=== PATIENT | male | born 2000 ===

== ENCOUNTER 2023-01-13 05:08 | Emergency (ER) | payer MEDICAID, OTHER ==
[~2023-01-13] VITALS: Ht 165 cm; Wt 217.0 kg
[2023-01-13 05:16] VITALS: BP 127/92
[2023-01-13] MEDS ORDERED: ONDANSETRON 4 MG/2 ML (SDV) Z0FRAN IVP ONE (05:30)
[2023-01-13] MEDS ORDERED: LACTATED RINGERS 1,000 ML IV ONE (05:30)
[2023-01-13 05:45] LABS: BASOPHILS % (AUTO) 0 % (0-10); EOSINOPHILS # (AUTO) 0.1 10^3/uL (0.0-0.3); EOSINOPHILS % (AUTO) 1 % (0-10); HEMATOCRIT 43 % (40-54); HEMOGLOBIN 14.3 g/dL (13.3-17.7); LYMPHOCYTES # (AUTO) 1.5 10^3/uL (1.0-4.0); LYMPHOCYTES % (AUTO) 13 % (12-44); MEAN CORPUSCULAR HEMOGLOBIN 28 pg (25-34); MEAN CORPUSCULAR HGB CONC 33 g/dL (32-36); MEAN CORPUSCULAR VOLUME 84 fL (80-99); MEAN PLATELET VOLUME 12.1 fL (9.0-12.2); MONOCYTES # (AUTO) 0.8 10^3/uL (0.0-1.0); MONOCYTES % (AUTO) 7 % (0-12); NEUTROPHILS # (AUTO) 8.6 10^3/uL (1.8-7.8); NEUTROPHILS % (AUTO) 78 % (42-75); PLATELET COUNT 173 10^3/uL (130-400)
--- NOTE | 2023-01-13 05:49 | ED Abdominal Pain ---
General Chief Complaint: Abdominal/GI Problems Stated Complaint: ABD PAIN Nursing Triage Note: PATIENT STATES PAIN STARTED LAST NIGHT AROUND 2300, STATES VOMITTING X2. REPORTS TOOK UNKNOWN "PAIN PILL" DIDN'T HELP Source of Information: Patient (SHARON RANGEL ) History of Present Illness Date Seen by Provider: Jan 13, 2023 Time Seen by Provider: 05:15 Initial Comments PT ARRIVES VIA POV WITH ANOTHER MALE C/O UPPER ABDOMINAL PAIN SINCE 2300 TONIGHT RATES PAIN "10" STATES "EVERYTHING" MAKES IT WORSE, IS BETTER IF HE RAISES HIS ARMS OVER HIS HEAD C/O NAUSEA AND VOMITED X2 HAD VERY SMALL BM TONIGHT PRIOR TO ONSET OF PAIN NO FEVER NO URINARY SYMPTOMS NO HISTORY OF SIMILAR NO PRIOR ABDOMINAL SURGERIES NO CHRONIC MEDICAL PROBLEMS, OTHER THAN OBESITY--PT ADMITS TO WEIGHING 480# AND IS 5' 5" TALL. PT SMOKES AND VAPES NICOTINE, OCCASIONAL ETOH--DENIES RECENT USE; THC--STATES HE LAST USED 2 WEEKS AGO PT JUST MOVED HERE LESS THAN A MONTH AGO FROM [place]. PT WANTING PAIN MEDICATIONS SOON HE ARRIVES. CLAIMS HE TOOK AN UNKNOWN "PAIN PILL" PRIOR TO ARRIVAL WITHOUT RELIEF. PCP: NONE (SHARON RANGEL DO) Allergies and Home Medications Allergies Coded Allergies: No Known Drug Allergies (Unverified , 01/13/23) Patient Home Medication List Home Medication List Reviewed: Yes (SHARON RANGEL DO) Famotidine (Pepcid) 20 Mg Tablet, 20 MG PO BID Prescribed by: JOVAN ULRICH on 01/13/23 0842 Ondansetron (Ondansetron Odt) 4 Mg Tab.rapdis, 4 MG SL Q4H PRN for NAUSEA/VOMITING Prescribed by: JOVAN ULRICH on 01/13/23 0842 Review of Systems Review of Systems Constitutional: no symptoms reported Respiratory: No Symptoms Reported Cardiovascular: No Symptoms Reported Gastrointestinal: See HPI, Abdominal Pain, Constipated, Nausea, Vomiting Genitourinary: No Symptoms Reported Musculoskeletal: no symptoms reported Skin: no symptoms reported Psychiatric/Neurological: No Symptoms Reported Endocrine: No Symptoms Reported Hematologic/Lymphatic: No Symptoms Reported (SHARON RANGEL DO) Past Vxiwfgj-Tomtir-Sfaiks Hx Patient Social History Tobacco Use?: Yes Tobacco type used: Cigarettes Smoking Status: Current Everyday Smoker Use of E-Cig and/or Vaping dev: Yes E-Cig or Vaping type used: Nicotine Use of E-Cig and/or Vaping Hernán: Current Everyday User Substance use?: Yes Substance type: Marijuana Substance frequency: Several times a month Alcohol Use?: Yes Alcohol Frequency: Several times a month (SHARON RANGEL DO) Past Medical History Surgeries: Yes (RIGHT HAND SURGERY) Orthopedic Respiratory: No Cardiac: No Neurological: No Genitourinary: No Gastrointestinal: No Musculoskeletal: No Endocrine: Yes (MORBID OBESITY) HEENT: No Cancer: No Psychosocial: No Integumentary: No Blood Disorders: No (SHARON RANGEL DO) Physical Exam Vital Signs Vital Signs - First Documented 01/13/23 05:16 Temp 36.0 Pulse 77 Resp 20 B/P (MAP) 127/92 (104) Pulse Ox 97 O2 Delivery Room Air (JOVAN LINDSEY MD) Vital Signs Capillary Refill : Less Than 3 Seconds (SHARON RANGEL DO) Height/Weight/BMI Height: '" Weight: lbs. oz. kg; 79.00 BMI Method: General Appearance: WD/WN, no apparent distress, obese (MORBIDLY OBESE), other (PT WALKS UPRIGHT AND MOVES WITHOUT DIFFICULTY) Neck: normal inspection Respiratory: normal breath sounds, no respiratory distress, no accessory muscle use Cardiovascular: regular rate, rhythm, no murmur Gastrointestinal: soft, tenderness (MID UPPER ABDOMINAL TENDERNESS), other (EXAM IS LIMITED BY BODY HABITUS) Extremities: normal range of motion, non-tender Back: no CVA tenderness Neurologic/Psychiatric: no motor/sensory deficits, alert, normal mood/affect, oriented x 3 Skin: normal color, warm/dry, other (MULTIPLE SORES ON LEGS, NO SIGNS OF INFECTION) (SHARON RANGEL DO) Progress/Results/Core Measures Results/Orders Lab Results Laboratory Tests Test 01/13/23 05:37 01/13/23 06:11 Range/Units White Blood Count 11.0 4.3-11.0 10^3/uL Red Blood Count 5.15 4.30-5.52 10^6/uL Hemoglobin 14.3 13.3-17.7 g/dL Hematocrit 43 40-54 % Mean Corpuscular Volume 84 80-99 fL Mean Corpuscular Hemoglobin 28 25-34 pg Mean Corpuscular Hemoglobin Concent 33 32-36 g/dL Red Cell Distribution Width 15.1 H 10.0-14.5 % Platelet Count 173 130-400 10^3/uL Mean Platelet Volume 12.1 9.0-12.2 fL Immature Granulocyte % (Auto) 1 % Neutrophils (%) (Auto) 78 H 42-75 % Lymphocytes (%) (Auto) 13 12-44 % Monocytes (%) (Auto) 7 0-12 % Eosinophils (%) (Auto) 1 0-10 % Basophils (%) (Auto) 0 0-10 % Neutrophils # (Auto) 8.6 H 1.8-7.8 10^3/uL Lymphocytes # (Auto) 1.5 1.0-4.0 10^3/uL Monocytes # (Auto) 0.8 0.0-1.0 10^3/uL Eosinophils # (Auto) 0.1 0.0-0.3 10^3/uL Basophils # (Auto) 0.0 0.0-0.1 10^3/uL Immature Granulocyte # (Auto) 0.1 0.0-0.1 10^3/uL Sodium Level 142 135-145 MMOL/L Potassium Level 3.7 3.6-5.0 MMOL/L Chloride Level 110 H 98-107 MMOL/L Carbon Dioxide Level 20 L 21-32 MMOL/L Anion Gap 12 5-14 MMOL/L Blood Urea Nitrogen 10 7-18 MG/DL Creatinine 0.86 0.60-1.30 MG/DL Estimat Glomerular Filtration Rate 124 BUN/Creatinine Ratio 12 Glucose Level 124 H 70-105 MG/DL Calcium Level 8.8 8.5-10.1 MG/DL Corrected Calcium 8.9 8.5-10.1 MG/DL Magnesium Level 2.2 1.6-2.4 MG/DL Total Bilirubin 0.4 0.1-1.0 MG/DL Aspartate Amino Transf (AST/SGOT) 23 5-34 U/L Alanine Aminotransferase (ALT/SGPT) 46 0-55 U/L Alkaline Phosphatase 83 40-136 U/L C-Reactive Protein High Sensitivity 1.49 H 0.00-0.50 MG/DL Total Protein 7.5 6.4-8.2 GM/DL Albumin 3.9 3.2-4.5 GM/DL Amylase Level 141 H 25-125 U/L Lipase 13 8-78 U/L Serum Alcohol < 10 <10 MG/DL Urine Color YELLOW Urine Clarity CLEAR Urine pH 5.5 5-9 Urine Specific [place] 1.005 L 1.016-1.022 Urine Protein 1+ H NEGATIVE Urine Glucose (UA) NEGATIVE NEGATIVE Urine Ketones NEGATIVE NEGATIVE Urine Nitrite NEGATIVE NEGATIVE Urine Bilirubin NEGATIVE NEGATIVE Urine Urobilinogen 0.2 < = 1.0 MG/DL Urine Leukocyte Esterase NEGATIVE NEGATIVE Urine RBC (Auto) NEGATIVE NEGATIVE Urine RBC NONE /HPF Urine WBC NONE /HPF Urine Crystals NONE /LPF Urine Bacteria TRACE /HPF Urine Casts NONE /LPF Urine Mucus NEGATIVE /LPF Urine Culture Indicated NO Urine Opiates Screen NEGATIVE NEGATIVE Urine Oxycodone Screen NEGATIVE NEGATIVE Urine Methadone Screen NEGATIVE NEGATIVE Urine Propoxyphene Screen NEGATIVE NEGATIVE Urine Barbiturates Screen NEGATIVE NEGATIVE Ur Tricyclic Antidepressants Screen NEGATIVE NEGATIVE Urine Phencyclidine Screen NEGATIVE NEGATIVE Urine Amphetamines Screen NEGATIVE NEGATIVE Urine Methamphetamines Screen NEGATIVE NEGATIVE Urine Benzodiazepines Screen NEGATIVE NEGATIVE Urine Cocaine Screen NEGATIVE NEGATIVE Urine Cannabinoids Screen NEGATIVE NEGATIVE (JOVAN LINDSEY MD) My Orders Orders - JOVAN LINDSEY MD Hs C Reactive Protein (01/13/23 07:16) Lidocaine 2% Viscous 15 Ml (Xylocaine Vi (01/13/23 07:30) Antacid Suspension (Mylanta Suspension (01/13/23 07:30) Pantoprazole Injection (Protonix Injecti (01/13/23 07:30) Iv Push Machine Inspector Ed (01/13/23 ) (JOVAN LINDSEY MD) Medications Given in ED (JOVAN LINDSEY MD) Vital Signs/I&O 01/13/23 05:16 Temp 36.0 Pulse 77 Resp 20 B/P (MAP) 127/92 (104) Pulse Ox 97 O2 Delivery Room Air (JOVAN LINDSEY MD) Blood Pressure Mean: 104 Progress Progress Note : Progress Note GIVEN: -IV FLUIDS -ZOFRAN LABS INCLUDING CBC, CMP, AMYLASE/LIPASE, UA, ETOH, UDS ORDERED. PT'S WEIGHT OF 480# EXCEEDS CT SCANNER LIMIT OF 450#. 0600--CARE TURNED OVER TO DR. LINDSEY AT SHIFT CHANGE. ALL STUDIES PENDING. (SHARON RANGEL DO) Progress Note #1: Time: 07:17 Progress Note Care of this patient has been transitioned to me from Dr. RANGEL at shift change. Labs were pending at that time. Report was received from Dr. RANGEL. Labs have been since reviewed and interpreted by me. CBC, CMP, magnesium, lipase, urinalysis, and toxicology screen were all relatively unremarkable. Amylase was minimally elevated. Patient reports his nausea has resolved. He has received a liter of LR and a dose of Zofran. He reports pain is still "10.". On examination he has tenderness in the region between the xiphoid process and the umbilicus centrally. GI cocktail and Protonix will be administered as a trial therapy. Work-up is limited in this gentleman due to body habitus and weight limitations for CT scanner. The remainder of his work-up and treatment will be based on response to treatment with the GI cocktail and Protonix. Vital signs have been stable thus far. Progress Note #2: Progress Note Patient had significant improvement of his pain and tenderness with GI cocktail. We discussed treatment options, lifestyle changes, etc. to treat possible acid reflux, gastritis, etc. Follow-up was discussed. The possible need for imaging such as gallbladder ultrasound was reviewed. Questions were answered. Patient was discharged after reviewing discharge instructions below. (JOVAN LINDSEY MD) Departure Impression Primary Impression: Epigastric pain Additional Impression: Nausea & vomiting Qualified Codes: R11.2 - Nausea with vomiting, unspecified Disposition: 01 HOME, SELF-CARE Condition: Improved Departure-Patient Inst. Decision time for Depature: 08:35 (JOVAN LINDSEY MD) Referrals: NO,LOCAL PHYSICIAN (PCP/Family) Primary Care Physician Patient Instructions: Acid Reflux and GERD In Adolescents (DC), Gastritis ED, Severe Abdominal Pain, Adult (DC) Add. Discharge Instructions: Adhere to a noncarbonated clear liquid diet for the remainder of today. Drink plenty of clear liquids to stay well-hydrated. Take Pepcid (famotidine) 20 mg twice daily for the next 2 weeks. A prescription is provided. You may also purchase this medication [id number] if the prescription is cost prohibitive. Take the Zofran (ondansetron) as prescribed for nausea or vomiting. You may take Tylenol (acetaminophen) up to 1000 mg every 6 hours as needed for pain, but do not take NSAID medications such as ibuprofen, naproxen, Advil, Aleve, Motrin, aspirin, etc. as they may worsen your stomach pain and irritation. You may take Tums or a generic equivalent for pain as well. Follow package instructions. Avoid the following: Eating large meals, eating close to bedtime, caffeine, carbonation, chocolate, citrus fruits and juices, tomato products, mints, alcohol, tobacco, marijuana products, spicy foods, fatty/greasy foods, NSAID medications such as ibuprofen or naproxen, and anything else you know irritates your stomach. General lifestyle changes that should help with this issue include quitting smoking and weight loss. Please follow-up with a primary care provider soon as possible. [facility] ([phone]) may be a good option for you as they may be able to help you with your insurance and transferring insurance with a patient navigator. If your insurance does not transfer, they have a sliding scale payment plan for uninsured patients. You may also wish to inquire with the registration desk about the [facility] financial assistance program. You should be experiencing gradual improvement of your pain over the next few days to a couple of weeks. If you are having escalating pain or other worsening symptoms, return to the emergency room for further evaluation. All discharge instructions reviewed with patient and/or family. Voiced understanding. Scripts Ondansetron (Ondansetron Odt) 4 Mg Tab.rapdis 4 MG SL Q4H PRN for NAUSEA/VOMITING, #10 TAB Prov: JOVAN LINDSEY MD 01/13/23 Famotidine (Pepcid) 20 Mg Tablet 20 MG PO BID, #30 TAB Prov: JOVAN LINDSEY MD 01/13/23 SHARON RANGEL DO Jan 13, 2023 05:49 JOVAN LINDSEY MD Jan 13, 2023 07:19
[2023-01-13 05:55] LABS: ALBUMIN 3.9 GM/DL (3.2-4.5)
[2023-01-13 05:56] LABS: CHLORIDE 110 MMOL/L (98-107); POTASSIUM 3.7 MMOL/L (3.6-5.0); SODIUM 142 MMOL/L (135-145)
[2023-01-13 05:57] LABS: AMYLASE 141 U/L (25-125); CALCIUM 8.8 MG/DL (8.5-10.1)
[2023-01-13 05:58] LABS: GLUCOSE 124 MG/DL (70-105); TOTAL PROTEIN 7.5 GM/DL (6.4-8.2)
[2023-01-13 05:59] LABS: CARBON DIOXIDE 20 MMOL/L (21-32)
[2023-01-13 06:00] LABS: BILIRUBIN,TOTAL 0.4 MG/DL (0.1-1.0)
[2023-01-13 06:01] LABS: ALKALINE PHOSPHATASE 83 U/L (40-136)
[2023-01-13 06:02] LABS: CREATININE SERUM 0.86 MG/DL (0.60-1.30); GFR ESTIMATED 124
[2023-01-13 06:03] LABS: BUN/CREATININE RATIO 12
[2023-01-13 06:04] LABS: MAGNESIUM 2.2 MG/DL (1.6-2.4)
[2023-01-13 06:05] LABS: ALANINE AMINOTRANSFERASE 46 U/L (0-55); LIPASE 13 U/L (8-78)
[2023-01-13 06:33] LABS: CLARITY,URINE CLEAR; COLOR,URINE YELLOW; PH,URINE 5.5 (5-9)
[2023-01-13 06:35] LABS: BACTERIA,URINE TRACE /HPF; BILIRUBIN,URINE NEGATIVE (NEGATIVE); GLUCOSE, URINE (UA) NEGATIVE (NEGATIVE); KETONES,URINE NEGATIVE (NEGATIVE); LEUKOCYTE ESTERASE ,URINE NEGATIVE (NEGATIVE); NITRITE,URINE NEGATIVE (NEGATIVE); PROTEIN,URINE 1+ (NEGATIVE)
[2023-01-13 06:51] LABS: AMPHETAMINE SCREEN, URINE NEGATIVE (NEGATIVE); BARBITURATE SCREEN URINE NEGATIVE (NEGATIVE); BENZODIAZEPINES SCREEN URINE NEGATIVE (NEGATIVE); CANNABINOID SCREEN, URINE NEGATIVE (NEGATIVE); COCAINE SCREEN URINE NEGATIVE (NEGATIVE); METHADONE STAT NEGATIVE (NEGATIVE); OPIATE SCREEN URINE NEGATIVE (NEGATIVE); OXYCODONE STAT NEGATIVE (NEGATIVE); PROPOXYPHENE STAT NEGATIVE (NEGATIVE); TRICYCLIC ANTIDEPRESSANTS SCRE NEGATIVE (NEGATIVE)
[2023-01-13] MEDS ORDERED: LIDOCAINE 2% VISCOUS 15 ML UDC PO ONE (07:30)
[2023-01-13] MEDS ORDERED: ANTACID SUSP 30 ML UDC (MYLANTA) PO ONE (07:30)
[2023-01-13] MEDS ORDERED: PANTOPRAZOLE 40 MG (PROTONIX) VIAL IV ONE (07:30)
[2023-01-13] MEDS ORDERED: ONDA4TAB11 SL (08:42)
[2023-01-13] MEDS ORDERED: FAMO-119 PO (08:42)
== END 2023-01-13 09:00 | disposition home or self-care (01) ==
LOC: ER 05:11
DX: R10.13 Epigastric pain (principal); R11.2 Nausea with vomiting, unspecified; E66.01 Morbid (severe) obesity due to excess calories; F17.290 Nicotine dependence, other tobacco product, uncomplicated; F17.210 Nicotine dependence, cigarettes, uncomplicated; Z68.45 Body mass index [BMI] 70 or greater, adult; Z28.310 Unvaccinated for COVID-19
CPT/HCPCS: 80053; 80306; 81000; 82150; 83690; 83735; 85025; 86141; 96361; 96374; 96375; 99283; G0480; 36415; 80320